=== PATIENT | male | born 1945 | race Caucasian/White ===

== ENCOUNTER 2016-07-16 13:35 | Emergency (ER) | payer MEDICARE, OTHER ==
[~2016-07-16 13:35] MED LIST: CEFTIN500 MG PO; CHILDREN'S ASPI81 MG PO; DALIRESP500 MCG PO; FLONASE 0.05% N16 GM; HYDRALAZINE HCL50 MG PO; IPRAT-ALBUT 0.5-3 ML INH; LOPRESSOR 25 MG25 MG PO; LOPRESSOR100 MG PO; MEDROL DOSEPAK 24 MG PO; MYCOSTATIN100000 UTS PO; NORVASC 5 MG TAB5 MG PO; PERFOROMIS20 MCG/21 HHN; PREDNISONE10 MG PO; PREDNISONE20 MG PO; PREDNISONE5 MG PO; PULMICORT0.5 MG/21 INH; SOTALOL80 MG PO; SPIRIVA18 MCG INH; SYMBICORT 160-1 INHA INH
[2016-07-16 18:24] LABS: HEMOGLOBIN 17.8 gm/dl (14.0-17.5); RED BLOOD COUNT 5.5 M/UL (4.20-5.50); WHITE BLOOD COUNT 13.8 K/UL (4.5-11.0)
[2016-07-16 18:47] LABS: BUN/CREATININE RATIO 24 (0-10)
== END 2016-07-17 07:34 | disposition home or self-care (01) ==
LOC: ER1 13:35
PROVIDERS: Emergency Medicine
DX: I11.0 Hypertensive heart disease with heart failure (principal); I50.9 Heart failure, unspecified; J44.1 Chronic obstructive pulmonary disease with (acute) exacerbation; I25.10 Atherosclerotic heart disease of native coronary artery without angina pectoris; J44.9 Chronic obstructive pulmonary disease, unspecified; Z95.5 Presence of coronary angioplasty implant and graft; Z87.891 Personal history of nicotine dependence; Z99.81 Dependence on supplemental oxygen; Z79.82 Long term (current) use of aspirin; Z79.899 Other long term (current) drug therapy
CPT/HCPCS: 36415; 36600; 71010; 80053; 81001; 82550; 82553; 82803; 83605; 83874; 83880; 84484; 85025; 87040; 87086; 93005; 94664; 96374; 96375; 99284; J1940; J2270; J2405; J2930; J7050; Q9963